=== PATIENT | male | born 1965 | race African-American/Black ===

== ENCOUNTER 2022-06-12 17:54 | Inpatient (IN) | payer OTHER, MEDICAID ==
[2022-06-12 18:35] LABS: #Eosinphils 0.1 10x3/uL (0.0-0.5); #Monocytes 0.4 10x3/uL (0.0-1.1); #Neutrophils 6.2 10x3/uL (1.5-8.4); %Basophils 0.3 % (0.0-2.0); %Eosinophils 1.7 % (0.0-6.0); %Lymphocytes 8.2 % (18.0-47.0); %Monocytes 4.9 % (0.0-10.0); %Neutrophils 82.8 % (40.0-75.0); Hemoglobin 13.5 g/dL (13.5-17.5); Mean Corpuscular HGB CONC 34.6 g/dL (32.0-36.0); Mean Corpuscular Hemoglobin 30.4 pg (27.0-33.0); Mean Corpuscular Volume 87.8 fl (81.2-95.1); Mean Platelet Volume 9.9 fl (7.4-10.4); Platelet Count 166 10x3/uL (150-450); RBC Distribution Width 12.5 % (11.5-14.5); Red Blood Cell (RBC) Count 4.44 10x6/uL (4.32-5.72); White Blood Cell (WBC) Count 7.5 10x3/uL (3.5-10.5)
[2022-06-12] MEDS ORDERED: Lorazepam 2 MG/ML VIAL ONE (18:43)
[2022-06-12] MEDS ORDERED: Fosphenytoin Sodium 1,500 MG in Sodium Chloride 0.9% 100 ML IVPB SCH (18:45)
[2022-06-12 18:47] LABS: ALT (SGPT) 32 U/L (8-55); AST (SGOT) 19 U/L (5-34); Acetaminophen Less than 10.0 mcg/mL (10.0-30.0); Albumin 3.8 g/dL (3.5-5.0); Alcohol Less than 10 mg/dL (Less than 10); Alkaline Phosphatase 101 U/L (40-110); Anion Gap 15 mmol/L (10-20); BUN (Urea Nitrogen) 9 mg/dL (8.4-25.7); Bilirubin, Total 0.2 mg/dL (0.2-1.2); Calc. Creatinine Clearance 0 mL/min (70-130); Carbon Dioxide 18 mmol/L (22-29); Chloride 109 mmol/L (98-107); Estimated GFR 97; Globulin 4.9 g/dL (2.4-3.5); Glucose 110 mg/dL (70-105); Lipase 10 U/L (8-78); Potassium 3.9 mmol/L (3.5-5.1); Protein, Total 8.7 g/dL (6.0-8.3); Salicylate Less than 8.0 mg/dL (15.0-30.0); Sodium 138 mmol/L (136-145)
[2022-06-12 21:27] LABS: Bilirubin Neg (Negative); Blood, Urine Negative (Negative); Clarity Clear (Clear); Glucose, Urine (Dipstick) Normal (Negative); Ketone, Urine 5 mg/dL (Negative); Leukocyte Negative (Negative); Nitrite Negative (Negative); Protein, Urine (Dipstick) Negative (Neg-Trace); Urobilinogen Normal mg/dL (Less than 2); pH, Urine 6.5 (5.0-9.0)
[2022-06-12 21:37] LABS: Amphetamine Not Detected (NotDetected); Barbiturates Screen Detected (NotDetected); Benzodiazepine Screen Detected (NotDetected); Cocaine Metabolite Screen Detected (NotDetected); Methadone Not Detected (NotDetected); Methamphetamine Not Detected (NotDetected); Opiate Screen Not Detected (NotDetected); Oxycodone Screen Not Detected (NotDetected); Phencyclidine (PCP) Not Detected (NotDetected); THC/Cannabinoid Screen Not Detected (NotDetected); Tricyclic Screen Not Detected (NotDetected)
[2022-06-12 21:53] LABS: Lactic Acid 3.8 mmol/L (0.5-2.2)
[2022-06-12 22:08] LABS: SARS-CoV-2 NAA Rapid Test Not Detected (NotDetected)
[2022-06-12] MEDS ORDERED: Ondansetron PF 4 MG/2 ML Vial IVP PRN (22:16)
[2022-06-12] MEDS ORDERED: Acetaminophen 325 MG TAB PO PRN (22:16)
[2022-06-12] MEDS ORDERED: Lorazepam 2 MG/ML VIAL SLOW IVP PRN (22:23)
[2022-06-12] MEDS ORDERED: Dextrose 5%-Lactated Ringers 1,000 ML IV SCH (22:30)
[2022-06-13] MEDS ORDERED: levETIRAcetam 500 MG/5 ML VIAL SLOW IVP SCH (00:01)
[2022-06-13] MEDS ORDERED: levETIRAcetam 500 MG/5 ML VIAL ONE (00:24)
[2022-06-13] MEDS ORDERED: Thiamine HCl 200 MG/2 ML VIAL ONE ×2 (00:24→00:55)
[2022-06-13] MEDS ORDERED: Fosphenytoin Sodium 500 mg/10 ml Vial ONE (00:25)
[2022-06-13] MEDS ORDERED: Famotidine/PF 20 mg/2ml Vial ONE (00:25)
[2022-06-13] MEDS ORDERED: D5 1/2 NS w/20 mEq KCL 1,000 ML ONE (00:26)
[2022-06-13] MEDS: Dextrose 5 %-0.45 % NaCl 1,000 ML IV SCH ×4 (01:03→23:38)
[2022-06-13] MEDS: Famotidine/PF 20 mg/2ml Vial SLOW IVP SCH ×3 (01:03→23:39)
[2022-06-13] MEDS: Thiamine HCl 200 MG/2 ML VIAL SLOW IVP SCH ×2 (01:03→23:38)
[2022-06-13 03:53] LABS: Hemoglobin 12.6 g/dL (13.5-17.5); Mean Corpuscular HGB CONC 33.6 g/dL (32.0-36.0); Mean Corpuscular Volume 89.3 fl (81.2-95.1); Platelet Count 140 10x3/uL (150-450); RBC Distribution Width 12.8 % (11.5-14.5); White Blood Cell (WBC) Count 8.2 10x3/uL (3.5-10.5)
[2022-06-13 04:08] LABS: Lactic Acid 2.5 mmol/L (0.5-2.2)
[2022-06-13 04:12] LABS: Anion Gap 16 mmol/L (10-20); BUN (Urea Nitrogen) 10 mg/dL (8.4-25.7); CK (CPK) 334 U/L (30-200); Calc. Creatinine Clearance 0 mL/min (70-130); Calcium 8.2 mg/dL (7.8-10.44); Carbon Dioxide 18 mmol/L (22-29); Chloride 109 mmol/L (98-107); Estimated GFR 93; Glucose 192 mg/dL (70-105); Magnesium 1.8 mg/dL (1.6-2.6); Phosphorus 3.7 mg/dL (2.3-4.7); Potassium 4.1 mmol/L (3.5-5.1); Sodium 139 mmol/L (136-145)
[2022-06-13 06:42] LABS: MDiff Complete? YES; Platelet Morphology Comment Appears Decreased
[2022-06-13 06:45] LABS: Band 3 % (5-11); Lymphocytes 13 % (21-51); Metamyelocyte 2 % (0-0); Monocytes 6 % (0-10); Neutrophil 76 % (42-75)
[2022-06-13 07:51] VITALS: BMI 22.7
[2022-06-13] MEDS ORDERED: [UNRECOGNIZED DRUG - OTHER] PO SCH (08:00)
[2022-06-13] MEDS: Multivitamin W/ Minerals 1 TAB PO SCH (08:19)
[2022-06-13] MEDS: Enoxaparin Sodium 40 MG/0.4 ML SYRINGE SC SCH (08:23)
[2022-06-13] MEDS ORDERED: Phenytoin Extended Release 100 MG CAP PO SCH (09:00)
[2022-06-13] MEDS ORDERED: levETIRAcetam 500 MG TAB PO SCH (09:00)
[2022-06-13] MEDS ORDERED: Rifaximin 550 MG TAB PO SCH (09:00)
[2022-06-13] MEDS ORDERED: Aspirin 81 mg Enteric Coated Tablet PO SCH (09:00)
[2022-06-13] MEDS ORDERED: Sulfameth/Trimethoprim DS 800-160mg TAB PO SCH (09:00)
[2022-06-13] MEDS ORDERED: Folic Acid 1 MG TAB PO SCH (09:00)
[2022-06-13] MEDS ORDERED: Labetalol HCl 100 MG/20 ML VIAL SLOW IVP PRN (18:16)
[2022-06-13] MEDS: levETIRAcetam 500 MG/5 ML VIAL SLOW IVP SCH (20:45)
[2022-06-13] MEDS ORDERED: Atorvastatin Calcium 10 MG TAB PO SCH (21:00)
[2022-06-13] MEDS ORDERED: levETIRAcetam in NS 1,000 MG in Premix Bag 1 BAG IVPB SCH (21:00)
[2022-06-14 04:27] LABS: #Eosinphils 0.2 10x3/uL (0.0-0.5); #Monocytes 0.6 10x3/uL (0.0-1.1); #Neutrophils 2.5 10x3/uL (1.5-8.4); %Basophils 0.4 % (0.0-2.0); %Eosinophils 3.5 % (0.0-6.0); %Lymphocytes 22.8 % (18.0-47.0); %Monocytes 13.3 % (0.0-10.0); %Neutrophils 54.9 % (40.0-75.0); Hemoglobin 12.4 g/dL (13.5-17.5); Mean Corpuscular HGB CONC 33.9 g/dL (32.0-36.0); Mean Corpuscular Hemoglobin 30.2 pg (27.0-33.0); Mean Corpuscular Volume 89.3 fl (81.2-95.1); Mean Platelet Volume 10.2 fl (7.4-10.4); Platelet Count 149 10x3/uL (150-450); RBC Distribution Width 12.6 % (11.5-14.5); White Blood Cell (WBC) Count 4.5 10x3/uL (3.5-10.5)
[2022-06-14 04:36] LABS: Anion Gap 13 mmol/L (10-20); BUN (Urea Nitrogen) 5 mg/dL (8.4-25.7); Calc. Creatinine Clearance 93 mL/min (70-130); Calcium 8.2 mg/dL (7.8-10.44); Carbon Dioxide 22 mmol/L (22-29); Chloride 109 mmol/L (98-107); Estimated GFR 102; Glucose 94 mg/dL (70-105); Potassium 3.5 mmol/L (3.5-5.1); Sodium 140 mmol/L (136-145)
[2022-06-14 04:38] LABS: MDiff Complete? YES
[2022-06-14 06:22] LABS: Band 3 % (5-11); Eosinophils 5 % (0-10); Lymphocytes 10 % (21-51); Monocytes 12 % (0-10); Neutrophil 69 % (42-75); Reactive Lymphocytes 1 % (0-10)
[2022-06-14 06:24] LABS: Microcytosis SLIGHT = 6-15 cells (100X) (0-5/hpf); Platelet Morphology Comment Appears Adequate
[2022-06-14] MEDS: Multivitamin W/ Minerals 1 TAB PO SCH (07:35)
[2022-06-14] MEDS: Enoxaparin Sodium 40 MG/0.4 ML SYRINGE SC SCH (07:36)
[2022-06-14] MEDS: levETIRAcetam 500 MG/5 ML VIAL SLOW IVP SCH (09:34)
[2022-06-14] MEDS: Famotidine/PF 20 mg/2ml Vial SLOW IVP SCH (11:45)
[2022-06-14 12:17] VITALS: BP 117/72
[2022-06-14 15:35] VITALS: TEMP 97.8
== END 2022-06-14 16:15 | disposition home or self-care (01) | DRG 101 ==
LOC: CSHERS 17:54 → CSHERHOLD 23:57 → CSHIMCU 06-13 06:26 → OBSVTOIN 06-14 08:37
PROVIDERS: ADMIT Emergency Medicine; ATTEND Family Medicine
DX: G40.909 Epilepsy, unspecified, not intractable, without status epilepticus (principal); E87.20 Acidosis, unspecified; Z20.822 Contact with and (suspected) exposure to COVID-19; I10 Essential (primary) hypertension; F19.10 Other psychoactive substance abuse, uncomplicated; E78.5 Hyperlipidemia, unspecified; Z21 Asymptomatic human immunodeficiency virus [HIV] infection status; Z79.899 Other long term (current) drug therapy; Z79.82 Long term (current) use of aspirin; Z86.73 Personal history of transient ischemic attack (TIA), and cerebral infarction without residual deficits
CPT/HCPCS: 36415; 70450; 71045; 80048; 80053; 80306; 80307; 81003; 82140; 82550; 83605; 83690; 83735; 83880; 84100; 84484; 84550; 85025; 93005; 94760; 96372; 96375; 96376; G0378; J1650; J1953; J2060; J3411; J3480; J3490; J7042; Q2009; S0028